=== PATIENT | male | born 1965 | race Caucasian/White ===

== ENCOUNTER → 2017-12-03 | Outpatient (CLI) | payer OTHER ==
[2017-12-03 12:48] LABS: Anion Gap 14 mmol/L; Blood Urea Nitrogen 19 mg/dL (9-20); Calcium 9.9 mg/dL (8.4-10.2); Carbon Dioxide 31 mmol/L (22-30); Chloride 93 mmol/L (98-107); Cholesterol 164 mg/dL (<200); Glucose 156 mg/dL (74-99); HDL Cholesterol 51 mg/dL (40-60); LDL Cholesterol,Calculated 86 mg/dL (0-99); Potassium 3.9 mmol/L (3.5-5.1); Sodium 138 mmol/L (137-145); Triglycerides 136 mg/dL (<150)
[2017-12-03 14:32] LABS: Appearance,Urine Clear (Clear); Bilirubin,Urine Negative (Negative); Blood,Urine Negative (Negative); Color,Urine Yellow; Glucose,Urine (UA) Negative (Negative); Ketones,Urine Negative (Negative); Leukocyte Esterase,Urine Negative (Negative); Nitrite,Urine Negative (Negative); PH, Urine 6.5 (5.0-8.0); Protein,Urine Trace (Negative); Specific Gravity,Urine 1.021 (1.001-1.035)
[2017-12-03 17:31] LABS: Hemoglobin A1C 6.5 % (4.0-6.0)
== END | disposition home or self-care (01) ==
LOC: LABWHC1 11:27
PROVIDERS: ATTEND Internal Medicine
DX: I10 Essential (primary) hypertension (principal); E11.9 Type 2 diabetes mellitus without complications; E78.5 Hyperlipidemia, unspecified
CPT/HCPCS: 36415; 80048; 80061; 81003; 82043; 82570; 83036

== ENCOUNTER 2021-02-15 17:56 | Emergency (ER) | payer OTHER ==
--- NOTE | 2021-02-15 18:33 | ED ---
Dizziness HPI - General Source: patient Mode of arrival: ambulatory Limitations: no limitations <Tomas Jones - Last Filed: 02/15/21 18:30> <Savage Marina - Last Filed: 02/15/21 23:40> - General Chief Complaint: Dizziness Stated Complaint: Dizziness, Vomiting - History of Present Illness Initial Comments: 55-year-old male with history of hypertension, hepatitis C and diabetes presents emergency Department with chief complaint of dizziness. States this occurred yesterday while he was getting out of bed and fell on his buttocks. Patient reports the room was spinning around him and developed some nausea no vomiting. States the symptoms resolved spontaneously after he went to sleep but reappeared again today. Denies history of vertigo. Denies one-sided weakness or paresthesias. Denies any headaches blurry vision, headache, lightheadedness, chest pain or shortness of breath. (Tomas Jones) HPI as documented above. Patient reports the room is spinning around him. He states he has been very nauseous feeling this. Patient states that moving his head and walking worsen the dizziness. Patient denies neck pain or fevers. Patient denies any weakness. Patient has not had these symptoms before. Patient denies any associated chest pain or shortness of breath. (Savage Marina) - Related Data Home Medications Medication Instructions Recorded Confirmed Albuterol Sulfate [Proair Hfa] 2 puff INHALATION RT-Q4H PRN 02/15/21 02/15/21 Aspirin EC [Ecotrin Low Dose] 81 mg PO DAILY 02/15/21 02/15/21 Benazepril HCl 20 mg PO DAILY 02/15/21 02/15/21 cloNIDine HCL 0.2 mg PO TID 02/15/21 02/15/21 hydroCHLOROthiazide 25 mg PO DAILY 02/15/21 02/15/21 metFORMIN HCL 1,000 mg PO BID 02/15/21 02/15/21 Previous Rx's Medication Instructions Recorded Meclizine [Antivert] 25 mg PO TID #20 tab 02/15/21 Allergies Allergy/AdvReac Type Severity Reaction Status Date / Time Penicillins Allergy Rash/Hives Verified 02/15/21 19:51 Review of Systems ROS Other: All systems not noted in ROS Statement are negative. <Tomas Jones - Last Filed: 02/15/21 18:30> ROS Other: All systems not noted in ROS Statement are negative. <Savage Marina - Last Filed: 02/15/21 23:40> ROS Statement: Those systems with pertinent positive or pertinent negative responses have been documented in the HPI. Past Medical History Past Medical History: Asthma, Diabetes Mellitus, Hypertension, Liver Disease, Pneumonia Additional Past Medical History / Comment(s): Hepatitis C History of Any Multi-Drug Resistant Organisms: None Reported Past Surgical History: Appendectomy Past Psychological History: No Psychological Hx Reported Smoking Status: Never smoker Past Alcohol Use History: None Reported Past Drug Use History: None Reported <Tomas Jones - Last Filed: 02/15/21 18:30> General Exam Limitations: no limitations <Tomas Jones - Last Filed: 02/15/21 18:30> General appearance: alert, in no apparent distress Head exam: Present: atraumatic, normocephalic, normal inspection Eye exam: Present: normal appearance, PERRL, EOMI. Absent: scleral icterus, conjunctival injection, periorbital swelling ENT exam: Present: normal exam, mucous membranes moist Neck exam: Present: normal inspection, full ROM. Absent: tenderness, meningi smus, lymphadenopathy Respiratory exam: Present: normal lung sounds bilaterally. Absent: respiratory distress, wheezes, rales, rhonchi, stridor Cardiovascular Exam: Present: regular rate, normal rhythm, normal heart sounds. Absent: systolic murmur, diastolic murmur, rubs, gallop, clicks GI/Abdominal exam: Present: soft, normal bowel sounds. Absent: distended, tenderness, guarding, rebound, rigid Neurological exam: Present: alert, oriented X3 Expanded Patient oriented to: Present: person, place, time Speech: Present: fluid speech Cranial nerves: EOM's Intact: Normal, Nystagmus: Normal, Facial Sensation: Normal Cerebellar function: Romberg: Normal Upper motor neuron: Pronator Drift: Normal Sensory exam: Upper Extremity Light Touch: Normal, Upper Extremity Pin Prick: Normal, Lower Extremity Light Touch: Normal, Lower Extremity Pin Prick: Normal Motor strength exam: RUE: 5 (no drift), LUE: 5 (no drift), RLE: 5 (no drift), LLE: 5 (no drift) Eye Response: (4) open spontaneously Motor Response: (6) obeys commands Verbal Response: (5) oriented Ashley Total: 15 <Savage Marina - Last Filed: 02/15/21 23:40> Course Vital Signs 02/15/21 02/15/21 18:26 21:15 Temperature 98.4 F Pulse Rate 102 H 92 Respiratory 17 17 Rate Blood Pressure 167/89 124/94 O2 Sat by Pulse 95 97 Oximetry EKG Findings - EKG Comments: EKG Findings:: Normal sinus rhythm, ventricular rate 89, AL interval 178, QTC 440 <Savage Marina - Last Filed: 02/15/21 23:40> Medical Decision Making - Lab Data Result diagrams: 02/15/21 21:03 02/15/21 21:03 <Savage Marina - Last Filed: 02/15/21 23:40> - Medical Decision Making Vitals are stable. Patient initially was dizzy upon arrival as well as nauseous and I feel he could ambulate. CBC CMP unremarkable. Troponin negative. EKG nonischemic. CT brain without contrast is negative. CT angio of the head and neck are negative as well. Patient was given Antivert as well as Valium. Patient had significant improvement in symptoms. Patient is now able to ambulate without difficulty. Patient feeling well enough for discharge. I suspect patient is experiencing vertigo. Patient is stable for discharge home to follow up with primary care. He will return here for any worsening symptoms and were discussed with him. I discussed this case with attending Dr. Reynoso who agrees with this assessment and treatment plan. (Savage Marina) - Lab Data Lab Results 02/15/21 02/15/21 02/15/21 Range/Units 21:03 21:03 21:03 WBC 12.0 H (3.8-10.6) k/uL RBC 5.54 (4.30-5.90) m/uL Hgb 16.7 (13.0-17.5) gm/dL Hct 49.2 (39.0-53.0) % MCV 88.8 (80.0-100.0) fL MCH 30.1 (25.0-35.0) pg MCHC 34.0 (31.0-37.0) g/dL RDW 12.8 (11.5-15.5) % Plt Count 322 (150-450) k/uL MPV 7.6 Neutrophils % 82 % Lymphocytes % 12 % Monocytes % 4 % Eosinophils % 1 % Basophils % 1 % Neutrophils # 9.8 H (1.3-7.7) k/uL Lymphocytes # 1.5 (1.0-4.8) k/uL Monocytes # 0.5 (0-1.0) k/uL Eosinophils # 0.1 (0-0.7) k/uL Basophils # 0.1 (0-0.2) k/uL PT (9.0-12.0) sec INR (<1.2) APTT (22.0-30.0) sec Sodium 137 (137-145) mmol/L Potassium 4.0 (3.5-5.1) mmol/L Chloride 95 L (98-107) mmol/L Carbon Dioxide 30 (22-30) mmol/L Anion Gap 12 mmol/L BUN 17 (9-20) mg/dL Creatinine 0.74 (0.66-1.25) mg/dL Est GFR (CKD-EPI)AfAm >90 (>60 ml/min/1.73 sqM) Est GFR (CKD-EPI)NonAf >90 (>60 ml/min/1.73 sqM) Glucose 172 H (74-99) mg/dL Calcium 10.3 H (8.4-10.2) mg/dL Total Bilirubin 1.1 (0.2-1.3) mg/dL AST 21 (17-59) U/L ALT 20 (4-49) U/L Alkaline Phosphatase 57 (38-126) U/L Troponin I <0.012 (0.000-0.034) ng/mL Total Protein 8.3 H (6.3-8.2) g/dL Albumin 5.0 (3.5-5.0) g/dL 02/15/21 Range/Units 21:03 WBC (3.8-10.6) k/uL RBC (4.30-5.90) m/uL Hgb (13.0-17.5) gm/dL Hct (39.0-53.0) % MCV (80.0-100.0) fL MCH (25.0-35.0) pg MCHC (31.0-37.0) g/dL RDW (11.5-15.5) % Plt Count (150-450) k/uL MPV Neutrophils % % Lymphocytes % % Monocytes % % Eosinophils % % Basophils % % Neutrophils # (1.3-7.7) k/uL Lymphocytes # (1.0-4.8) k/uL Monocytes # (0-1.0) k/uL Eosinophils # (0-0.7) k/uL Basophils # (0-0.2) k/uL PT 10.4 (9.0-12.0) sec INR 1.0 (<1.2) APTT 22.3 (22.0-30.0) sec Sodium (137-145) mmol/L Potassium (3.5-5.1) mmol/L Chloride (98-107) mmol/L Carbon Dioxide (22-30) mmol/L Anion Gap mmol/L BUN (9-20) mg/dL Creatinine (0.66-1.25) mg/dL Est GFR (CKD-EPI)AfAm (>60 ml/min/1.73 sqM) Est GFR (CKD-EPI)NonAf (>60 ml/min/1.73 sqM) Glucose (74-99) mg/dL Calcium (8.4-10.2) mg/dL Total Bilirubin (0.2-1.3) mg/dL AST (17-59) U/L ALT (4-49) U/L Alkaline Phosphatase (38-126) U/L Troponin I (0.000-0.034) ng/mL Total Protein (6.3-8.2) g/dL Albumin (3.5-5.0) g/dL Disposition <Tomas Jones - Last Filed: 02/15/21 18:30> Is patient prescribed a controlled substance at d/c from ED?: No Time of Disposition: 23:37 <Savage Marina - Last Filed: 02/15/21 23:40> Clinical Impression: Dizziness Disposition: HOME SELF-CARE Condition: Good Instructions (If sedation given, give patient instructions): Dizziness (ED) Additional Instructions: Please take Antivert for dizziness. Drink plenty of fluids. Follow-up with primary care tomorrow or Friday. If you have any worsening symptoms return to the emergency room. Prescriptions: Meclizine [Antivert] 25 mg PO TID #20 tab Referrals: Stephen Kelsey MD [Primary Care Provider] - 1-2 days
[2021-02-15] MEDS ORDERED: MECLIZINE 12.5 MG TAB PO STA (19:33)
[2021-02-15] MEDS ORDERED: SODIUM CHLORIDE 0.9% 1,000 ML IV STA (19:33)
[2021-02-15 21:20] LABS: Basophils # (A) 0.1 k/uL (0-0.2); Basophils % (A) 1 %; Eosinophils # (A) 0.1 k/uL (0-0.7); Eosinophils % (A) 1 %; HCT 49.2 % (39.0-53.0); HGB 16.7 gm/dL (13.0-17.5); Lymphocytes # (A) 1.5 k/uL (1.0-4.8); Lymphocytes % (A) 12 %; MCH 30.1 pg (25.0-35.0); MCV 88.8 fL (80.0-100.0); Mean Platelet Volume 7.6; Monocytes # (A) 0.5 k/uL (0-1.0); Monocytes % (A) 4 %; Neutrophils # (A) 9.8 k/uL (1.3-7.7); Neutrophils % (A) 82 %; Platelet Count 322 k/uL (150-450); RBC 5.54 m/uL (4.30-5.90); RDW 12.8 % (11.5-15.5)
[2021-02-15 21:29] LABS: Partial Thromboplastin Time 22.3 sec (22.0-30.0); Prothrombin Time 10.4 sec (9.0-12.0)
[2021-02-15] MEDS: cloNIDine HCL 0.2 MG TAB PO STA ×3 (21:31→23:18)
[2021-02-15 21:49] LABS: ALT 20 U/L (4-49); AST 21 U/L (17-59); African American GFR (CKD) >90 (>60 ml/min/1.73 sqM); Alkaline Phosphatase 57 U/L (38-126); Anion Gap 12 mmol/L; Blood Urea Nitrogen 17 mg/dL (9-20); Calcium 10.3 mg/dL (8.4-10.2); Carbon Dioxide 30 mmol/L (22-30); Chloride 95 mmol/L (98-107); Glucose 172 mg/dL (74-99); Non-African American GFR(CKD) >90 (>60 ml/min/1.73 sqM); Sodium 137 mmol/L (137-145); Total Bilirubin 1.1 mg/dL (0.2-1.3); Total Protein 8.3 g/dL (6.3-8.2)
[2021-02-15] MEDS ORDERED: DIAZEPAM 5 MG/ML 2 ML INJ IVP STA (22:03)
--- NOTE | 2021-02-15 22:30 | CT ---
EXAMINATION TYPE: CT brain wo con DATE OF EXAM: 02/15/2021 COMPARISON: None HISTORY: dizziness CT DLP: 1827.9 mGycm Automated exposure control for dose reduction was used. Ventricles have normal size. There is no mass effect nor midline shift. There is no sign of intracran ial hemorrhage. There is 5 mm hypodensity in the region of the right sylvian fissure that could be Vi rchow Zane space. The calvarium is intact. Skull base is intact. IMPRESSION: Negative unenhanced head CT scan.
[2021-02-15] MEDS ORDERED: ONDANSETRON 4 MG/2 ML VIAL IVP STA (22:59)
--- NOTE | 2021-02-15 23:18 | CT ---
EXAMINATION TYPE: CT angio head neck DATE OF EXAM: 02/15/2021 COMPARISON: None HISTORY: Dizziness CT DLP: mGycm Automated exposure control for dose reduction was used. CONTRAST: Images were obtained from the aortic arch to the vertex of the brain with IV nonionic contrast and 3- D post processed images. FINDINGS: There is normal branching pattern of the great vessels on the aortic arch. There is bilateral arteria l flow in the subclavian arteries. There is arterial flow in both vertebral arteries. There is arteri al flow in the common internal and external carotid arteries bilaterally. There is wide patency of th e carotid artery bifurcations. There is no significant plaque formation. There is no evidence of duke tid or vertebral artery aneurysm or dissection. There is arterial flow in the vertebrobasilar artery system. There is arterial flow in the anterior middle and posterior cerebral arteries. There is no mass effec t. There is no evidence of intracranial aneurysm or neovascularity. There is normal contrast opacific ation of the venous sinuses. I see no bony destructive process. The posterior communicating arteries are bilaterally patent. IMPRESSION: Negative CT angiogram of the neck. Negative CT angiogram of the brain.
[2021-02-16 00:45] VITALS: BP 134/74; PULSE 78; RESP 18; TEMP 98.2
== END 2021-02-16 00:45 | disposition home or self-care (01) ==
LOC: EC 17:56
DX: R42 Dizziness and giddiness (principal); R11.0 Nausea; J45.909 Unspecified asthma, uncomplicated; E11.9 Type 2 diabetes mellitus without complications; I10 Essential (primary) hypertension; Z79.84 Long term (current) use of oral hypoglycemic drugs; Z79.899 Other long term (current) drug therapy; Z88.0 Allergy status to penicillin; Z90.49 Acquired absence of other specified parts of digestive tract; W06.XXXA Fall from bed, initial encounter
CPT/HCPCS: 36415; 93005; 80053; 84484; 85025; 85610; 85730; 70496; 70450; 70498; 99284; 96374; 96375; 96361 ×2; J3360; J2405; Q9967

== ENCOUNTER → 2022-01-10 | Outpatient (CLI) | payer OTHER ==
[2022-01-10 18:07] LABS: HCT 49.2 % (39.6-50.0); HGB 15.7 g/dL (13.0-17.0); MCH 29.1 pg (27.0-32.0); MCHC 31.9 g/dL (32.0-37.0); MCV 91.1 fL (80.0-97.0); Mean Platelet Volume 10.9 fL (9.5-12.2); NRBC Per 100 WBC 0 /100 WBCS (0.0-0.0); Platelet Count 359 X 10*3/uL (140-440); RDW 13.4 % (11.5-14.5); WBC 9.99 X 10*3/uL (4.50-10.00)
[2022-01-10 18:17] LABS: African American GFR (CKD) 116.3 (60.0-200.0); Albumin 4.7 g/dL (3.8-4.9); Albumin/Globulin Ratio 1.47 (1.60-3.17); BUN/Creat Ratio 23.17 Ratio (12.00-20.00); Blood Urea Nitrogen 17.7 mg/dL (9.0-27.0); Calcium 10.4 mg/dL (8.7-10.3); Carbon Dioxide 26.3 mmol/L (20.0-27.5); Globulin 3.2 g/dL (1.6-3.3); Non-African American GFR(CKD) 100.4 (60.0-200.0); Potassium 4.1 mmol/L (3.5-5.5); Total Bilirubin 0.8 mg/dL (0.30-1.20); Total Protein 7.9 g/dL (6.2-8.2)
== END | disposition home or self-care (01) ==
LOC: LABWHC1 12:44
PROVIDERS: ATTEND Surgery
DX: K81.1 Chronic cholecystitis (principal)
CPT/HCPCS: 36415; 80053; 85027

== ENCOUNTER → 2024-02-11 | Outpatient (CLI) | payer OTHER ==
[2024-02-11 18:40] LABS: HCT 49.4 % (39.6-50.0); HGB 16.1 g/dL (13.0-17.0); MCH 29.4 pg (27.0-32.0); MCHC 32.6 g/dL (32.0-37.0); MCV 90.1 FL (80.0-97.0); Mean Platelet Volume 10.4 FL (9.5-12.2); NRBC Per 100 WBC 0 X 10*3/uL (0.00-0.01); Platelet Count 370 X 10*3/uL (140-440); RBC 5.48 X 10*6/uL (4.40-5.60); RDW 13.1 % (11.5-14.5); WBC 11.84 X 10*3/uL (4.50-10.00)
[2024-02-11 20:25] LABS: ALT 17 U/L (10-49); AST 19 U/L (14-35); Albumin/Globulin Ratio 1.72 Ratio (1.60-3.17); Alkaline Phosphatase 45 U/L (41-126); BUN/Creat Ratio 21.62 Ratio (12.00-20.00); Blood Urea Nitrogen 17.3 mg/dL (9.0-27.0); Calcium 10.2 mg/dL (8.7-10.3); Carbon Dioxide 27.4 mmol/L (21.6-31.8); Chloride 95 mmol/L (96-109); Globulin 2.9 g/dL (1.6-3.3); Glucose 133 mg/dL (70-110); Potassium 3.9 mmol/L (3.5-5.5); Sodium 139 mmol/L (135-145); Total Bilirubin 0.8 mg/dL (0.3-1.2); Total Protein 7.9 g/dL (6.2-8.2)
== END | disposition home or self-care (01) ==
LOC: LABWHC1 13:32
PROVIDERS: ATTEND Surgery
DX: K81.1 Chronic cholecystitis (principal)
CPT/HCPCS: 36415; 80053; 85027

== ENCOUNTER 2024-04-02 07:27 | Day surgery (SDC) | payer OTHER ==
[2024-03-31 15:23] VITALS: BMI 32.8
[~2024-04-02 07:27] MED LIST: HYDROmorphone 0.5 MG/0.5 ML SYRINGE IVP PRN
[2024-04-02] MEDS: LACTATED RINGERS 1,000 ML IV SCH (08:09)
[2024-04-02 08:30] LABS: Glucose,Whole Blood 162 mg/dL (70-110)
[2024-04-02] MEDS ORDERED: ONDANSETRON 4 MG/2 ML VIAL ONE ×2 (08:30→13:55)
[2024-04-02] MEDS: ACETAMINOPHEN TAB 500 MG TAB PO PRN (08:32)
[2024-04-02] MEDS: ONDANSETRON 4 MG/2 ML VIAL IVP ONE ×2 (08:32→13:58)
[2024-04-02] MEDS: SCOPOLAMINE 1 MG/72 HR PATCH TRANSDERM ONE (08:34)
[2024-04-02] MEDS: DEXAMETHASONE SOD PHOSPHATE 4 MG/ML 1 ML VIAL IVP ONE (08:34)
[2024-04-02] MEDS: HEPARIN SODIUM,PORCINE 5,000 UNIT/ML 1 ML VIAL SQ PRN (08:46)
--- NOTE | 2024-04-02 09:06 | P.GSHP ---
History of Present Illness H&P Date: 04/02/24 Chief Complaint: Chronic cholecystitis 58-year-old male here for elective cholecystectomy. Patient has had intermittent attacks for the last year or more. Ultrasound showing gallstones. Patient with significant weight loss over the years. Last attack approximately 1 week ago. Past Medical History Past Medical History: Asthma, Diabetes Mellitus, Hearing Disorder / Deafness, Hypertension, Liver Disease, Osteoarthritis (OA), Pneumonia Additional Past Medical History / Comment(s): Slight hearing loss right ear, Hepatitis C, vertigo, "bad right knee". History of Any Multi-Drug Resistant Organisms: None Reported Past Surgical History: Appendectomy Additional Past Surgical History / Comment(s): Bilateral cataract surgery with lens implants. Past Anesthesia/Blood Transfusion Reactions: No Reported Reaction, Motion Sickness Additional Past Anesthesia/Blood Transfusion Reaction / Comment(s): Vertigo. Past Psychological History: No Psychological Hx Reported Smoking Status: Never smoker Past Alcohol Use History: None Reported Past Drug Use History: None Reported - Past Family History Mother Family Medical History: No Reported History Medications and Allergies Home Medications Medication Instructions Recorded Confirmed Type Albuterol Sulfate [Proair Hfa] 2 puff INHALATION RT-Q4H PRN 02/15/21 03/31/24 History Aspirin EC [Ecotrin Low Dose] 81 mg PO DAILY 02/15/21 03/31/24 History Benazepril HCl 20 mg PO DAILY 02/15/21 03/31/24 History cloNIDine HCL 0.2 mg PO TID 02/15/21 03/31/24 History hydroCHLOROthiazide 25 mg PO DAILY 02/15/21 03/31/24 History metFORMIN HCL [Glucophage] 1,000 mg PO BID 02/15/21 03/31/24 History Allergies Allergy/AdvReac Type Severity Reaction Status Date / Time Penicillins Allergy Rash/Hives Verified 04/02/24 08:04 Surgical - Exam Vital Signs Temp Pulse Resp BP Pulse Ox 98.0 F 93 18 125/75 95 04/02/24 08:17 04/02/24 08:17 04/02/24 08:17 04/02/24 08:17 04/02/24 08:17 Physical exam: General: Well-developed, well-nourished HEENT: Normocephalic, sclerae nonicteric Abdomen: Nontender, nondistended Extremities: No edema Neuro: Alert and oriented Results - Labs Abnormal Lab Results - Last 24 Hours (Table) 04/02/24 Range/Units 08:23 POC Glucose (mg/dL) 162 H (70-110) mg/dL Assessment and Plan (1) Chronic cholecystitis Narrative/Plan: Will proceed with laparoscopic, possible open cholecystectomy at this time. Risks of bleeding, infection, bile leak, bile duct injury, retained common bile duct stone, trocar injury, conversion to an open procedure, hernia, anesthesia related complications were reviewed. The patient understands and wishes to proceed. Status: Acute Code(s): K81.1 - CHRONIC CHOLECYSTITIS SNOMED Code(s): 81572025
[2024-04-02] MEDS ORDERED: HYDROmorphone (PF) 1 MG/ML ONE (09:21)
[2024-04-02] MEDS ORDERED: PROPOFOL 10 MG/ML 20 ML VIAL IV ONE (09:21)
[2024-04-02] MEDS ORDERED: SUCCINYLCHOLINE CHLORIDE 200 MG/10 ML VIAL IV ONE (09:21)
[2024-04-02] MEDS ORDERED: GLYCOPYRROLATE 0.2 MG/ML 2 ML VIAL ONE (09:21)
[2024-04-02] MEDS ORDERED: ROCURONIUM 10 MG/ML (5 ML VIAL) IV ONE (09:21)
[2024-04-02] MEDS ORDERED: MIDAZOLAM 2 MG/2 ML VIAL ONE (09:21)
[2024-04-02] MEDS ORDERED: KETOROLAC 15 MG/ML 1 ML VIAL ONE (09:21)
[2024-04-02] MEDS ORDERED: fentaNYL (PF) 50 MCG/ML 2 ML AMP ONE (09:21)
[2024-04-02] MEDS ORDERED: NEOSTIGMINE 1 MG/ML 10 ML VIAL ONE (09:21)
[2024-04-02] MEDS ORDERED: LIDOCAINE 1% INJ 10MG/ML (20 ML MDV) ONE (09:21)
[2024-04-02] MEDS: BUPIVACAINE (PF) 0.25% 30 ML VIAL SQ ONE (09:51)
--- NOTE | 2024-04-02 10:51 | P.OP ---
Date of Procedure: 04/02/24 Procedure(s) Performed: PREOPERATIVE DIAGNOSIS: Chronic cholecystitis POSTOPERATIVE DIAGNOSIS: Same PROCEDURE: Laparoscopic cholecystectomy SURGEON: Jie EBL: Minimal see anesthesia record ANESTHESIA: Gen. COMPLICATIONS: None OPERATIVE PROCEDURE: The patient was brought and placed on the operating room table in the supine position. The patient was placed under general anesthesia at that time. The abdomen was prepped and draped in the usual sterile fashion. A small curvilinear supraumbilical incision was made. The fascia was grasped with the Kit forceps. The fascia was retracted anteriorly. The Veress needle was advanced into the peritoneal cavity. The saline drop test was normal. Insufflation took place up to 15 mmHg. A 5 mm optical trocar was advanced and the peritoneal cavity. 2 additional 5 mm trochars were placed in the right upper quadrant under direct visualization. A 12 mm trocar was advanced into the epigastric incision site. The gallbladder was retracted superiorly and laterally. The peritoneum overlying the infundibulum was bluntly dissected. The patient's cystic duct was visualized. The junction between the cystic duct common and hepatic duct was identified. The critical view of safety was achieved after blunt dissection. The cystic duct was then divided after placement of 3 12 mm clips on the patient's side and one on the specimen side. The cystic artery was identified and clipped as well. A small vessel was seen along the gallbladder fossa and clipped as well. The gallbladder was then removed from the liver bed using electrocautery. The gallbladder was then removed from the epigastric trocar site with an Endo Catch bag. The gallbladder fossa was irrigated with saline. There was no evidence of any bleeding or biliary drainage seen. The fascia at the 12 millimeter site was closed using a Evangelista-Xavier 0 Vicryl stitch. The trochars were then removed. The skin at all 4 sites was closed using a 4-0 Monocryl stitch. Skin glue was utilized on the incision sites. At the end of this procedure the sponge and needle counts were correct. DISPOSITION: Stable to the recovery room
[2024-04-02 11:00] LABS: Glucose,Whole Blood 184 mg/dL (70-110)
[2024-04-02 11:28] VITALS: TEMP 97.6
[2024-04-02] MEDS: traMADol 50 MG TAB PO STA (11:56)
[2024-04-02] MEDS ORDERED: ACETAMINOPHEN TAB 325 MG TAB PO SCH (12:00)
[2024-04-02 12:24] VITALS: RESP 20
[2024-04-02] MEDS ORDERED: IBUPROFEN 600 MG TAB PO SCH (14:00)
[2024-04-02 14:21] VITALS: BP 138/71; PULSE 66
[2024-04-02] MEDS ORDERED: METOCLOPRAMIDE 5 MG/ML 2 ML VIAL ONE (14:40)
[2024-04-02] MEDS: METOCLOPRAMIDE 5 MG/ML 2 ML VIAL IVP ONE (14:45)
== END 2024-04-02 15:38 | disposition home or self-care (01) ==
LOC: OR 07:27
PROVIDERS: ATTEND Surgery
DX: K80.10 Calculus of gallbladder with chronic cholecystitis without obstruction (principal); I10 Essential (primary) hypertension; E11.9 Type 2 diabetes mellitus without complications; J45.909 Unspecified asthma, uncomplicated; M19.90 Unspecified osteoarthritis, unspecified site; H91.90 Unspecified hearing loss, unspecified ear; B19.20 Unspecified viral hepatitis C without hepatic coma; Z79.84 Long term (current) use of oral hypoglycemic drugs; Z88.0 Allergy status to penicillin; Z90.49 Acquired absence of other specified parts of digestive tract; Z79.82 Long term (current) use of aspirin; Z79.899 Other long term (current) drug therapy; Z88.8 Allergy status to other drugs, medicaments and biological substances
CPT/HCPCS: 88304; 47562; J2250; J0330; J1644; J1100; J2710; J2765; J0690; J2405; J2001; J3010; J1170; J1885; J2704; J0665

== ENCOUNTER → 2024-08-26 | Outpatient (CLI) | payer OTHER ==
--- NOTE | 2024-08-27 05:40 | MR ---
EXAMINATION TYPE: MR shoulder RT wo con DATE OF EXAM: 08/26/2024 COMPARISON: None HISTORY: Right shoulder pain, limited movement since June. TECHNIQUE: Multiplanar, multisequence imaging of the right shoulder is performed without contrast. FINDINGS: Rotator Cuff: Some increased signal distal supraspinatus tendon. Intact infraspinatus tendon. Intact subscapularis tendon. Rotator muscle bulk is preserved. Acromioclavicular Joint: Moderate narrowing in any subchondral cystic change. Mild to moderate spurri ng. Moderate capsular hypertrophy. Loss of underlying fat plane noted. Glenohumeral Joint: Small sized joint effusion. Narrowing is seen. No significant spurring. Labrum: The labrum appears grossly intact given limitation of non-arthrogram study. Biceps Tendon: The long head of biceps is in normal location within bicipital groove. Bone marrow signal: Some overall heterogeneity. Other: No additional significant abnormality is appreciated. IMPRESSION: 1. No rotator cuff or labral tear is seen. 2. Degenerative changes at acromioclavicular joint with suggestion of underlying impingement, correla te clinically. [facility], , 08/27/2024 5:38 AM
== END | disposition home or self-care (01) ==
LOC: RADMRIMAIN 15:52
PROVIDERS: ATTEND Internal Medicine
DX: S46.009A Unspecified injury of muscle(s) and tendon(s) of the rotator cuff of unspecified shoulder, initial encounter (principal); M25.511 Pain in right shoulder

== ENCOUNTER → 2025-04-05 | Outpatient (CLI) | payer OTHER ==
[2025-04-05 15:54] LABS: Hepatitis A Antibody IgM Nonreactive (Nonreactive); Hepatitis B Core IgM Nonreactive (Nonreactive); Hepatitis B Surface Antigen Nonreactive (Nonreactive); Hepatitis C IgG Antibody Nonreactive (Nonreactive)
[2025-04-05 16:16] LABS: Basophils # (A) 0.11 X 10*3/uL (0.00-0.10); Basophils % (A) 1.3 %; Eosinophils # (A) 0.16 X 10*3/uL (0.04-0.35); Eosinophils % (A) 1.8 %; HCT 47.1 % (39.6-50.0); HGB 15.3 g/dL (13.0-17.0); Lymphocytes # (A) 2.86 X 10*3/uL (0.90-5.00); Lymphocytes % (A) 32.5 %; MCH 29.8 pg (27.0-32.0); MCHC 32.5 g/dL (32.0-37.0); MCV 91.8 FL (80.0-97.0); Mean Platelet Volume 11.5 FL (9.5-12.2); NRBC Per 100 WBC 0 X 10*3/uL (0.00-0.01); Neutrophils # (A) 4.94 X 10*3/uL (1.80-7.70); Neutrophils % (A) 56.2 %; Platelet Count 282 X 10*3/uL (140-440); RBC 5.13 X 10*6/uL (4.40-5.60); WBC 8.79 X 10*3/uL (4.50-10.00)
[2025-04-05 16:18] LABS: ALT 22 U/L (10-49); AST 26 U/L (14-35); Albumin 4.6 g/dL (3.8-4.9); Albumin/Globulin Ratio 1.84 Ratio (1.60-3.17); Alkaline Phosphatase 42 U/L (41-126); Blood Urea Nitrogen 18.8 mg/dL (9.0-27.0); Calcium 9.9 mg/dL (8.7-10.3); Carbon Dioxide 25.5 mmol/L (21.6-31.8); Chloride 97 mmol/L (96-109); Globulin 2.5 g/dL (1.6-3.3); Glucose 157 mg/dL (70-110); Potassium 4.4 mmol/L (3.5-5.5); Sodium 137 mmol/L (135-145); Total Bilirubin 1.3 mg/dL (0.3-1.2); Total Protein 7.1 g/dL (6.2-8.2)
== END | disposition home or self-care (01) ==
LOC: LABWHC1 10:20
DX: E11.9 Type 2 diabetes mellitus without complications (principal); K75.9 Inflammatory liver disease, unspecified
CPT/HCPCS: 36415; 80053; 80074; 83036; 85025